=== PATIENT | male | born 1950 | race Caucasian/White ===

== ENCOUNTER 2018-04-07 02:02 | Emergency (ER) | payer BC, MEDICARE ==
[2018-04-07 02:30] VITALS: BP 138/90
[2018-04-07] MEDS ORDERED: LISI20TA29 PO (03:03)
[2018-04-07] MEDS ORDERED: EMS NS 0.9%(*) 1000 ML BAG 1,000 ML IV ONE (03:10)
--- NOTE | 2018-04-07 05:10 | ER Report ---
History and Physical Time Seen By MD: 02:04 Hx. of Stated Complaint: pt came in by ems. he called ems for rt flank pain possibly related to a kidney stone. pt pain free upon arrival, states he thinks the stone passed and would like to go home. ems gave hime 4mg zofran, 100mcg fentenyl, 2mg versed, 1000cc NS HPI/ROS CHIEF COMPLAINT: Right flank pain HISTORY OF PRESENT ILLNESS: 68-year-old male brought in by EMS from [facility]. Patient notes onset of right flank pain around in 1900. Patient notes vomiting. Patient states he had a kidney stone greater than 10 years ago. She also notes history of hypertension. He thinks he takes lisinopril. She notes no fever or chills. Patient notes no hematuria. He describes 10/10 colicky pain. Patient was brought in by EMS was established. An IV, gave him Zofran 4 mg, fentanyl 100 g, and Versed 2 mg IV. On arrival. Patient states his pain is completely resolved. REVIEW OF SYSTEMS: Respiratory: No cough, no dyspnea. Cardiovascular: No chest pain, no palpitations. Gastrointestinal: As above Musculoskeletal: As above Allergies: Coded Allergies: No Known Drug Allergies (Unverified , 04/07/18) Home Meds Reported Medications Lisinopril (LISINOPRIL) 20 Mg Tablet, 20 MG PO QDAY, TAB 04/07/18 Constitutional Vital Sign - Last 24 Hours 04/07/18 04/07/18 02:02 02:30 Temp 98.8 Pulse 86 80 Resp 16 14 B/P (MAP) 128/107 138/90 (106) Pulse Ox 90 90 O2 Delivery Room Air Room Air Intake and Output 04/06/18 04/06/18 04/07/18 15:00 23:00 07:00 Intake Total 1000 ml Balance 1000 ml Physical Exam Vital signs stable, afebrile, pulse ox normal General Appearance: The patient is alert, has no immediate need for airway protection and no current signs of toxicity. No acute distress, vital signs stable Eyes: Pupils equal and round no injection. Respiratory: Chest is non tender, lungs are clear to auscultation. Cardiac: regular rate and rhythm Gastrointestinal: Abdomen is soft and non tender, no masses, bowel sounds normal., No CVA tenderness Musculoskeletal: Neck: Neck is supple and non tender. Extremities have full range of motion and are non tender. Skin: No rashes or lesions. DIFFERENTIAL DIAGNOSIS: After history and physical exam differential diagnosis was considered for flank pain including but not limited to musculoskeletal c auses, kidney stone, pyelonephritis, shingles, and intra-abdominal causes such as diverticulitis and appendicitis. Medical Decision Making ED Course/Re-evaluation ED Course Patient was admitted to an examination room. H&P was done. The differential diagnoses was considered. On clinical examination. Patient has no CVA tenderness on the right. He has benign nonsurgical abdominal examination. His vital signs are stable. He is afebrile. Patient would like to be discharged since his symptoms have resolved. Patient's advised to follow-up with urology. He is discharged with a strainer and a urinal. A paper chart was completed on this patient as well. Decision to Disposition Date: Apr 07, 2018 Decision to Disposition Time: 02:27 Depart Departure Latest Vital Signs Vital Signs Date Time Temp Pulse Resp B/P (MAP) Pulse Ox O2 Delivery O2 Flow Rate FiO2 04/07/18 02:30 80 14 138/90 (106) 90 Room Air 04/07/18 02:02 98.8 Impression: Primary Impression: Renal colic on right side Additional Impressions: History of hypertension History of kidney stones Condition: Improved Disposition: HOME OR SELF-CARE Referrals: PANCHITO WANG MD, LYLE MD Departure Forms: Medications Reconciliation, Patient Portal Information, ER Transition Record Additional Instructions: Follow-up with urology urology if unimproved in 3-5 days Problem Qualifiers SCAR PACHECO DO Apr 07, 2018 05:10
[2018-04-07] MEDS ORDERED: HYDR-385 PO (18:52)
[2018-04-07] MEDS ORDERED: ONDA4TAB PO (18:52)
[2018-04-07] MEDS ORDERED: KET10 PO (18:52)
[2018-04-07] MEDS ORDERED: TAMS0.4C25 PO (18:52)
== END 2018-04-07 03:19 | disposition home or self-care (01) ==
LOC: ER 02:49
DX: N23 Unspecified renal colic (principal); I10 Essential (primary) hypertension; Z87.442 Personal history of urinary calculi
CPT/HCPCS: 96360; 99283

== ENCOUNTER 2018-04-07 16:44 | Emergency (ER) | payer OTHER, MEDICARE ==
[~2018-04-07 16:44] MED LIST: LISI20TA29 PO
--- NOTE | 2018-04-07 16:47 | ER Report ---
History and Physical Time Seen By MD: 16:47 HPI/ROS CHIEF COMPLAINT: Right flank pain HISTORY OF PRESENT ILLNESS: 68-year-old male patient presents to emergency room with complaint of right flank pain. Patient states that he's been having this pain since last night. He states that he had significant pain last night and called 911. He was brought in the emergency room. At that time pain had completely resolved. Patient states that he did not want to stay and was discharged home. Patient states he has recurrence of pain today. States the pain is fairly significant. Seems to be on the right flank. States that in route to coming here that he did have some improvement in his discomfort. Patient states that he is not had any nausea or vomiting. He did have a history of kidney stones and this feels very similar to that. Patient states that he would like to have his stone broken up tonight if possible. Patient denies any fevers, chills. REVIEW OF SYSTEMS: Respiratory: No cough, no dyspnea. Cardiovascular: No chest pain, no palpitations. Gastrointestinal: No vomiting, no abdominal pain. Musculoskeletal: As noted above Allergies: Coded Allergies: No Known Drug Allergies (Unverified , 04/07/18) Home Meds Active Scripts Tamsulosin Hcl (FLOMAX) 0.4 Mg Cap.er.24h, 1 MG PO DAILY, #15 CAP Prov:MARJORIE CARBAJAL [facility] 04/07/18 Ketorolac Tromethamine (KETOROLAC TROMETHAMINE) 10 Mg Tab, 10 MG PO Q6H, #20 TAB Prov:MARJORIE CARBAJAL [facility] 04/07/18 Ondansetron (ZOFRAN ODT) 4 Mg Tab.rapdis, 4 MG PO Q6H PRN for NAUSEA/VOMITING, #20 TAB.KEELY Prov:MARJORIE CARBAJAL [facility] 04/07/18 Hydrocodone Bit/Acetaminophen (HYDROCODON-ACETAMINOPHEN 5-325) 1 Each Tablet, 1 EACH PO Q4-6H PRN for PAIN, #12 TAB Prov:MARJORIE CARBAJAL [facility] 04/07/18 Reported Medications Lisinopril (LISINOPRIL) 20 Mg Tablet, 20 MG PO QDAY, TAB 04/07/18 Past Medical/Surgical History Patient has a past medical history of hypertension, kidney stones, hemochromatosis. Patient has a surgical history of neck surgery. Reviewed Nurses Notes: Yes Constitutional Vital Sign - Last 24 Hours 04/07/18 04/07/18 04/07/18 04/07/18 16:46 16:47 16:50 16:55 Temp 99.2 Pulse 96 88 87 Resp 18 B/P (MAP) 151/76 151/76 (101) Pulse Ox 90 91 90 O2 Delivery Room Air 04/07/18 04/07/18 04/07/18 04/07/18 17:00 17:05 17:10 17:30 B/P (MAP) 154/82 (106) 136/71 (92) Pulse Ox 89 87 04/07/18 04/07/18 04/07/18 04/07/18 18:00 18:05 18:10 18:15 Pulse 68 77 80 79 B/P (MAP) 143/74 (97) Pulse Ox 90 89 87 87 04/07/18 04/07/18 18:20 18:30 Pulse 79 B/P (MAP) 142/79 (100) Pulse Ox 89 Physical Exam General Appearance: The patient is alert, has no immediate need for airway protection and no current signs of toxicity. Respiratory: Chest is non tender, lungs are clear to auscultation. Cardiac: regular rate and rhythm Gastrointestinal: Abdomen is soft and non tender, no masses, bowel sounds normal. Patient had no CVA tenderness. Musculoskeletal: Neck: Neck is supple and non tender. Extremities have full range of motion and are non tender. Skin: No rashes or lesions. DIFFERENTIAL DIAGNOSIS: After history and physical exam differential diagnosis was considered for flank pain including but not limited to musculoskeletal causes, kidney stone, pyelonephritis, shingles, and intra-abdominal causes such as diverticulitis and appendicitis. Medical Decision Making Data Points Result Diagram: 04/07/18 1441 04/07/18 1441 Laboratory Hematology Test 04/07/18 14:41 04/07/18 17:06 Red Blood Count 4.80 M/uL (4.00-5.60) Mean Corpuscular Volume 97.6 fL (80.0-96.0) Mean Corpuscular Hemoglobin 34.7 pg (26.0-33.0) Mean Corpuscular Hemoglobin Concent 35.5 g/dL (32.0-36.0) Red Cell Distribution Width 13.6 % (11.5-14.5) Mean Platelet Volume 9.3 fL (7.2-11.1) Neutrophils (%) (Auto) 59.5 % (39.4-72.5) Lymphocytes (%) (Auto) 26.9 % (17.6-49.6) Monocytes (%) (Auto) 10.7 % (4.1-12.4) Eosinophils (%) (Auto) 1.6 % (0.4-6.7) Basophils (%) (Auto) 1.3 % (0.3-1.4) Nucleated RBC Relative Count (auto) 0.0 /100WBC Neutrophils # (Auto) 5.8 K/uL (2.0-7.4) Lymphocytes # (Auto) 2.6 K/uL (1.3-3.6) Monocytes # (Auto) 1.0 K/uL (0.3-1.0) Eosinophils # (Auto) 0.2 K/uL (0.0-0.5) Basophils # (Auto) 0.1 K/uL (0.0-0.1) Nucleated RBC Absolute Count (auto) 0.00 K/uL Erythrocyte Sedimentation Rate 8 mm/HOUR (0-20) Sodium Level 137 mmol/L (137-145) Potassium Level 3.7 mmol/L (3.5-5.0) Chloride Level 101 mmol/L (98-107) Carbon Dioxide Level 22 mmol/L (22-30) Blood Urea Nitrogen 19 mg/dl (9-21) Creatinine 1.30 mg/dl (0.66-1.25) Glomerular Filtration Rate Calc 55.2 Random Glucose 92 mg/dl (75-110) Calcium Level 9.7 mg/dl (8.4-10.2) Total Bilirubin 0.8 mg/dl (0.2-1.3) Aspartate Amino Transf (AST/SGOT) 40 U/L (0-35) Alanine Aminotransferase (ALT/SGPT) 46 U/L (0-56) Alkaline Phosphatase 104 U/L (0-126) C-Reactive Protein < 0.5 mg/dl (<1.0) Total Protein 7.2 g/dl (6.3-8.2) Albumin 4.2 g/dl (3.5-5.0) Urine Color Yellow Urine Clarity Clear Urine pH 6.0 pH (4.8-9.5) Urine Specific [place] 1.010 Urine Protein Negative mg/dL (NEGATIVE) Urine Glucose (UA) Negative mg/dL (NEGATIVE) Urine Ketones Negative mg/dL (NEGATIVE) Urine Blood Large (NEGATIVE) Urine Nitrite Negative (NEGATIVE) Urine Bilirubin Negative (NEGATIVE) Urine Urobilinogen 2.0 mg/dL (0.2-1.9) Urine Leukocyte Esterase Negative (NEGATIVE) Urine RBC 82 /HPF (0-2/HPF) Urine WBC 2 /HPF (0-5/HPF) Urine Squamous Epithelial Cells Few /LPF (</=FEW) Urine Bacteria Negative /HPF (NONE-FEW) Urine Mucus None /HPF (NONE-FEW) Chemistry Test 04/07/18 14:41 04/07/18 17:06 White Blood Count 9.7 k/uL (4.5-11.0) Red Blood Count 4.80 M/uL (4.00-5.60) Hemoglobin 16.7 g/dL (14.0-18.0) Hematocrit 46.9 % (42.0-52.0) Mean Corpuscular Volume 97.6 fL (80.0-96.0) Mean Corpuscular Hemoglobin 34.7 pg (26.0-33.0) Mean Corpuscular Hemoglobin Concent 35.5 g/dL (32.0-36.0) Red Cell Distribution Width 13.6 % (11.5-14.5) Platelet Count 234 K/uL (150-450) Mean Platelet Volume 9.3 fL (7.2-11.1) Neutrophils (%) (Auto) 59.5 % (39.4-72.5) Lymphocytes (%) (Auto) 26.9 % (17.6-49.6) Monocytes (%) (Auto) 10.7 % (4.1-12.4) Eosinophils (%) (Auto) 1.6 % (0.4-6.7) Basophils (%) (Auto) 1.3 % (0.3-1.4) Nucleated RBC Relative Count (auto) 0.0 /100WBC Neutrophils # (Auto) 5.8 K/uL (2.0-7.4) Lymphocytes # (Auto) 2.6 K/uL (1.3-3.6) Monocytes # (Auto) 1.0 K/uL (0.3-1.0) Eosinophils # (Auto) 0.2 K/uL (0.0-0.5) Basophils # (Auto) 0.1 K/uL (0.0-0.1) Nucleated RBC Absolute Count (auto) 0.00 K/uL Erythrocyte Sedimentation Rate 8 mm/HOUR (0-20) Glomerular Filtration Rate Calc 55.2 Calcium Level 9.7 mg/dl (8.4-10.2) Total Bilirubin 0.8 mg/dl (0.2-1.3) Aspartate Amino Transf (AST/SGOT) 40 U/L (0-35) Alanine Aminotransferase (ALT/SGPT) 46 U/L (0-56) Alkaline Phosphatase 104 U/L (0-126) C-Reactive Protein < 0.5 mg/dl (<1.0) Total Protein 7.2 g/dl (6.3-8.2) Albumin 4.2 g/dl (3.5-5.0) Urine Color Yellow Urine Clarity Clear Urine pH 6.0 pH (4.8-9.5) Urine Specific [place] 1.010 Urine Protein Negative mg/dL (NEGATIVE) Urine Glucose (UA) Negative mg/dL (NEGATIVE) Urine Ketones Negative mg/dL (NEGATIVE) Urine Blood Large (NEGATIVE) Urine Nitrite Negative (NEGATIVE) Urine Bilirubin Negative (NEGATIVE) Urine Urobilinogen 2.0 mg/dL (0.2-1.9) Urine Leukocyte Esterase Negative (NEGATIVE) Urine RBC 82 /HPF (0-2/HPF) Urine WBC 2 /HPF (0-5/HPF) Urine Squamous Epithelial Cells Few /LPF (</=FEW) Urine Bacteria Negative /HPF (NONE-FEW) Urine Mucus None /HPF (NONE-FEW) Urinalysis Test 04/07/18 17:06 Urine Color Yellow Urine Clarity Clear Urine pH 6.0 pH (4.8-9.5) Urine Specific [place] 1.010 Urine Protein Negative mg/dL (NEGATIVE) Urine Glucose (UA) Negative mg/dL (NEGATIVE) Urine Ketones Negative mg/dL (NEGATIVE) Urine Blood Large (NEGATIVE) Urine Nitrite Negative (NEGATIVE) Urine Bilirubin Negative (NEGATIVE) Urine Urobilinogen 2.0 mg/dL (0.2-1.9) Urine Leukocyte Esterase Negative (NEGATIVE) Urine RBC 82 /HPF (0-2/HPF) Urine WBC 2 /HPF (0-5/HPF) Urine Squamous Epithelial Cells Few /LPF (</=FEW) Urine Bacteria Negative /HPF (NONE-FEW) Urine Mucus None /HPF (NONE-FEW) EKG/Imaging Imaging EXAMINATION: CT abdomen and pelvis with contrast COMPARISON: None. HISTORY: Intermittent flank pain. PROCEDURE: Multiplanar contrast enhanced CT of the abdomen and pelvis with 75 mL intravenous Isovue 370. One of the following dose optimization techniques was utilized in the performance of this exam: Automated exposure control; adjustment of the mA and/or kV according to the patient's size; or use of an iterative reconstruction technique. Specific details can be referenced in the facility's radiology CT exam operational policy. FINDINGS: Visualized thorax: No acute findings. Coronary calcifications. Liver: Hepatic steatosis. Gallbladder and biliary system: Negative Spleen: Negative. Pancreas: Negative. Adrenal glands: Negative. Kidneys and bladder: Right kidney mild asymmetric perinephric inflammation and pelviectasis. There is a 6 mm nonobstructing stone in the right kidney lower pole but no evidence of a radiopaque ureteral stone. There are a few right kidney upper pole cyst but no mass or focal region of parenchymal edema is otherwise identified. Left kidney lower pole punctate nonobstructing stone; no radiopaque ureteral stone or hydronephrosis in the left. Urinary bladder is unremarkable. Vessels: Aortoiliac moderate atherosclerosis. No aneurysm. Portal venous system and IVC are within normal limits. Bowel and mesentery: Stomach, small bowel, and appendix are within normal limits. Small amount of stool in the colon. There are a few sigmoid diverticula. No bowel or mesenteric inflammation. Pelvic organs: Mildly enlarged and heterogeneous prostate. Prominent calcification in the right hemiscrotum, likely an incidental scrotolith.. Lymph nodes: No adenopathy. Free air/free fluid: None. Abdominal wall and osseous structures: Small fat-containing umbilical hernia. Mild to moderate degenerative change throughout the visualized spine. No acute findings. IMPRESSION: 1. Right kidney asymmetric perinephric inflammation and pelviectasis. There is a 6 mm nonobstructing stone in the right kidney lower pole but no evidence of a radiopaque ureteral stone. Differential considerations include changes from a recently passed stone, a mildly obstructing radiolucent stone, and a urinary tract infection. 2. No other findings of acute disease in the abdomen or pelvis. 3. Hepatic steatosis. 4. Additional nonacute findings as described above. Report Dictated By: Andrew Lim MD at 04/07/2018 5:58 PM Report E-Signed By: Andrew Lim MD at 04/07/2018 6:08 PM ED Course/Re-evaluation ED Course Patient was admitted to exam room, history and physical were obtained. Differential diagnoses were considered. On examination patient had no obvious tenderness, no CVA tenderness, no tenderness to the abdomen. Lungs were clear and heart was regular. Patient was seen just last night with same complaint. A IV was started, CBC, CMP, CT scan of the abdomen and pelvis were done. The labs were unremarkable, CT scan of the abdomen and pelvis did show a large stone in the right kidney, there is no stones noted in the ureter. There was some hydronephrosis and dilation of the ureter, with that there was belief that the stone may have recently passed. I discussed the findings with the patient. We will go ahead and have him follow-up with urology for further evaluation of the stone that is in the kidney. In the meantime we will prescribe Flomax, Toradol, Lortab and Zofran to help with the pain. Patient is to return to emergency room if condition worsens. Otherwise he is to follow up with urology. Patient and his verbalized understanding and agreement with plan. Decision to Disposition Date: Apr 07, 2018 Decision to Disposition Time: 18:53 Depart Departure Latest Vital Signs Vital Signs Date Time Temp Pulse Resp B/P (MAP) Pulse Ox O2 Delivery O2 Flow Rate FiO2 04/07/18 18:30 142/79 (100) 04/07/18 18:20 79 89 04/07/18 16:46 99.2 18 Room Air Impression: Primary Impression: Kidney stone on right side Condition: Improved Disposition: HOME OR SELF-CARE New Scripts Tamsulosin Hcl (FLOMAX) 0.4 Mg Cap.er.24h 1 MG PO DAILY, #15 CAP Prov: MARJORIE CARBAJAL 04/07/18 Ketorolac Tromethamine (KETOROLAC TROMETHAMINE) 10 Mg Tab 10 MG PO Q6H, #20 TAB Prov: MARJORIE CARBAJAL 04/07/18 Ondansetron (ZOFRAN ODT) 4 Mg Tab.rapdis 4 MG PO Q6H PRN for NAUSEA/VOMITING, #20 TAB.KEELY Prov: MARJORIE CARBAJAL 04/07/18 Hydrocodone Bit/Acetaminophen (HYDROCODON-ACETAMINOPHEN 5-325) 1 Each Tablet 1 EACH PO Q4-6H PRN for PAIN, #12 TAB Prov: MARJORIE CARBAJAL 04/07/18 Patient Instructions: Kidney Stones (ED) Additional Instructions: Increase fluid intake. Get plenty of rest. Limit activity by pain. Follow up with Urology. Return to the ER if condition worsens. Take the medication as prescribed. MARJORIE CARBAJAL Apr 07, 2018 16:47
[2018-04-07] MEDS ORDERED: NS(*) 0.9% 1000 ML BAG 1,000 ML IV ONE (16:59)
[2018-04-07] MEDS ORDERED: IOPAMIDOL 76% 75 ML INFUS BTL 75 ML ONE (17:09)
[2018-04-07] MEDS ORDERED: EMS NS 0.9%(*) 1000 ML BAG 1,000 ML IV ONE (17:10)
[2018-04-07 17:17] LABS: PLATELET COUNT, AUTOMATED 234 K/uL (150-450)
[2018-04-07] MEDS ORDERED: KETOROLAC 15 MG/ML VIAL IVP ONE (17:50)
--- NOTE | 2018-04-07 18:12 | RADIOLOGY IMAGING REPORT ---
FACILITY: [facility] [place] PATIENT NAME: Gucci Galvan : 1950 MR: [id number] V: [id number] EXAM DATE: ORDERING PHYSICIAN: MARJORIE CARBAJAL TECHNOLOGIST: Location: [facility] [place] Patient: Gucci Galvan : 1950 Visit/Account:[id number] Date of Sevice: 04/07/2018 EXAMINATION: CT abdomen and pelvis with contrast COMPARISON: None. HISTORY: Intermittent flank pain. PROCEDURE: Multiplanar contrast enhanced CT of the abdomen and pelvis with 75 mL intravenous Isovue 3 70. One of the following dose optimization techniques was utilized in the performance of this exam: A utomated exposure control; adjustment of the mA and/or kV according to the patient's size; or use of an iterative reconstruction technique. Specific details can be referenced in the facility's radiolo gy CT exam operational policy. FINDINGS: Visualized thorax: No acute findings. Coronary calcifications. Liver: Hepatic steatosis. Gallbladder and biliary system: Negative Spleen: Negative. Pancreas: Negative. Adrenal glands: Negative. Kidneys and bladder: Right kidney mild asymmetric perinephric inflammation and pelviectasis. There is a 6 mm nonobstructing stone in the right kidney lower pole but no evidence of a radiopaque ureteral stone. There are a few right kidney upper pole cyst but no mass or focal region of parenchymal edema is otherwise identified. Left kidney lower pole punctate nonobstructing stone; no radiopaque ureteral stone or hydronephrosis in the left. Urinary bladder is unremarkable. Vessels: Aortoiliac moderate atherosclerosis. No aneurysm. Portal venous system and IVC are within no rmal limits. Bowel and mesentery: Stomach, small bowel, and appendix are within normal limits. Small amount of sto ol in the colon. There are a few sigmoid diverticula. No bowel or mesenteric inflammation. Pelvic organs: Mildly enlarged and heterogeneous prostate. Prominent calcification in the right hemis crotum, likely an incidental scrotolith.. Lymph nodes: No adenopathy. Free air/free fluid: None. Abdominal wall and osseous structures: Small fat-containing umbilical hernia. Mild to moderate degene rative change throughout the visualized spine. No acute findings. IMPRESSION: 1. Right kidney asymmetric perinephric inflammation and pelviectasis. There is a 6 mm nonobstructing stone in the right kidney lower pole but no evidence of a radiopaque ureteral stone. Differential con siderations include changes from a recently passed stone, a mildly obstructing radiolucent stone, and a urinary tract infection. 2. No other findings of acute disease in the abdomen or pelvis. 3. Hepatic steatosis. 4. Additional nonacute findings as described above. Report Dictated By: Andrew Lim MD at 04/07/2018 5:58 PM Report E-Signed By: Andrew Lim MD at 04/07/2018 6:08 PM [id number]
[2018-04-07 18:30] VITALS: BP 142/79
[2018-04-07] MEDS ORDERED: HYDR-385 PO (18:52)
[2018-04-07] MEDS ORDERED: TAMS0.4C25 PO (18:52)
[2018-04-07] MEDS ORDERED: ONDA4TAB PO (18:52)
[2018-04-07] MEDS ORDERED: KET10 PO (18:52)
== END 2018-04-07 19:07 | disposition home or self-care (01) ==
LOC: ER 16:50
DX: N13.2 Hydronephrosis with renal and ureteral calculous obstruction (principal)
CPT/HCPCS: 81001; 85025; 85651; 86140; 96361; 96374; 99283; J1885; Q9967; 74177; 82040; 82247; 82310; 82374; 82435; 82565; 82947; 84075; 84132; 84155; 84295; 84450; 84460; 84520